=== PATIENT | female | born 1945 | race Caucasian/White ===

== ENCOUNTER → 2022-04-15 10:37 | Outpatient (CLI) | payer OTHER, MEDICARE, SELFPAY | PROVIDERS: PCP Physician Assistant; Visit Provider Physician Assistant | DX: L08.9 Local infection of the skin and subcutaneous tissue, unspecified (principal); S81.802A Unspecified open wound, left lower leg, initial encounter; S82.62XA Displaced fracture of lateral malleolus of left fibula, initial encounter for closed fracture | CPT/HCPCS: 73590; 87070; 87075; 87205 ==

== ENCOUNTER → 2025-01-31 09:28 | Outpatient (CLI) | payer OTHER, SELFPAY ==
[2025-01-31 14:26] LABS: Free T4, Direct Thyroxine 1.62 ng/dL (0.78-2.19)
[2025-02-01 17:30] LABS: Thyroid Stimulating Hormone 0.737 uIU/mL (0.47-4.68)
== END ==
PROVIDERS: PCP Family Medicine; Referring Provider Family Medicine; Visit Provider Internal Medicine Endocrinology, Diabetes & Metabolism
DX: E03.9 Hypothyroidism, unspecified (principal)
CPT/HCPCS: 36415; 84439; 84443